=== PATIENT | female | born 1970 | race Native Hawaiian/Other Pacific Islander ===

== ENCOUNTER 2017-04-28 05:33 | Emergency (ER) | payer OTHER ==
[~2017-04-28] VITALS: Ht 170.2 cm; Wt 137.4 kg
[2017-04-28 06:38] LABS: PLATELET COUNT 226 K/uL (152-353)
[2017-04-28 06:48] LABS: POTASSIUM 3.2 mmol/L (3.6-5.2); SODIUM 136 mmol/L (136-145)
== END 2017-04-28 07:43 | disposition home or self-care (01) ==
LOC: ED 05:33
DX: J02.9 Acute pharyngitis, unspecified (principal)
CPT/HCPCS: 80048; 85027; 87081; 87880; 96372; 99282; J0696

== ENCOUNTER 2018-05-25 11:26 | Emergency (ER) | payer OTHER ==
[~2018-05-25] VITALS: Ht 170.2 cm; Wt 136.1 kg
[2018-05-25 12:17] LABS: PLATELET COUNT 285 K/uL (152-353)
[2018-05-25 12:54] VITALS: BP 150/80; TEMP 98.6
== END 2018-05-25 12:57 | disposition home or self-care (01) ==
LOC: ED 11:26
DX: K52.89 Other specified noninfective gastroenteritis and colitis (principal)
CPT/HCPCS: 74022; 80053; 82150; 83690; 83735; 85027; 99283

== ENCOUNTER 2018-10-01 18:21 | Emergency (ER) | payer OTHER ==
[~2018-10-01] VITALS: Ht 170.2 cm; Wt 140.2 kg
[2018-10-01 20:06] VITALS: BP 148/72; TEMP 97.9
== END 2018-10-01 20:07 | disposition home or self-care (01) ==
LOC: ED 18:21
DX: K08.89 Other specified disorders of teeth and supporting structures (principal); K04.7 Periapical abscess without sinus
CPT/HCPCS: 96372; 99283; J1885

== ENCOUNTER 2018-12-18 11:36 | Emergency (ER) | payer OTHER ==
[~2018-12-18] VITALS: Ht 170.2 cm; Wt 136.1 kg
[2018-12-18 12:38] LABS: PLATELET COUNT 313 K/uL (152-353)
[2018-12-18 12:42] LABS: POTASSIUM 3.4 mmol/L (3.6-5.2)
[2018-12-18 14:12] VITALS: BP 158/78; TEMP 98
== END 2018-12-18 14:12 | disposition home or self-care (01) ==
LOC: ED 11:36
PROVIDERS: Emergency Medicine
DX: J06.9 Acute upper respiratory infection, unspecified (principal)
CPT/HCPCS: 36415; 80053; 81025; 85027; 87502; 87651; 99283